=== PATIENT | male | born 1990 | race Caucasian/White ===

== ENCOUNTER 2017-12-14 20:45 | Emergency (ER) | payer SELFPAY ==
[2017-12-14 20:47] VITALS: BP 158/99; PULSE 130; RESP 20; TEMP 37.8; O2SAT 99; BMI 27.7
--- NOTE | 2017-12-14 21:05 | ED.VISSUMM ---
- ER Visit Summary Date of Service: 12/14/17 Chief Complaint: Sore throat History of Present Illness: The patient is a 27 M no significant past medical history. Patient woke up today with sore throat. His girlfriend had amoxicillin which he took. Later today felt worse. Says he has not been eating or drinking much due to a sore throat. And he felt dizzy. He also has felt feverish. He denies vomiting or diarrhea. No melena. Physical Examination: Vital signs are stable he does have a low-grade fever 100 and a heart rate of 130. Pulse ox 99% on room air no signs of hypoxia. H EENT exam TMs are normal. Mildly dry mucous membranes. Posterior pharynx has slightly enlarged tonsils airways patent. Tonsils are erythematous with exudate. Consistent with strep throat. There is no peritonsillar abscess. There is no stridor or drooling. He is able to swallow. He has no trouble breathing. Neck has mild anterior chain lymphadenopathy and tenderness. Trachea midline nontender lungs clear to auscultation bilaterally. Heart tachycardic no murmur. Abdomen soft nontender. No axillary lymphadenopathy no splenomegaly or abdominal tenderness. He is moving all 4 extremities. Neurovascular intact. Nontender. Normal range of motion. Normal motor strength both upper and lower extremities. Back exam nontender. Skin no rash. Neurologic exam normal. Test Results: None Emergency Department Course and Treatment: Clinically he is mildly dehydrated has strep throat. He will orally hydrate. Treatment Plan: Amoxicillin 3 times daily for 10 days. Fluids and rest. Warm salt water gargling. Disposition: Discharge Impression: Acute strep tonsillitis Mild dehydration This note was generated with [employer] dictation software. It may contain incorrect words, spelling, and punctuation that were not noted in review of the chart prior to signing ED Disposition - Plan for ED Patient: Chief Complaint: General Illness Referrals: NOT,DEFINED [Primary Care Provider] -
[2017-12-14] MEDS: AMOXICILLIN 500 MG CAPSULE PO (21:08)
[2017-12-14] MEDS: Acetaminophen 500 MG Tablet 1000 MG PO (21:08)
--- NOTE | 2017-12-14 21:08 | ED.DEP ---
ED Disposition - Plan for ED Patient: Disposition: Home or Assisted Living Chief Complaint: General Illness Instructions: Strep Throat Prescriptions: Amoxicillin 500 mg PO TID #30 tab Referrals: Michael Velazco MD [STAFF PHYSICIAN] - 3-5 Days if not improving Additional Instructions: You are mildly dehydrated. You must drink plenty of fluids and rest. Water, Gatorade or 7-Up. Warm salt water gargling to soothe her throat pain. Tylenol and Motrin for fever and body aches. Amoxicillin 1 pill 3 times a day for 10 days for your strep throat. Follow-up if not getting better return to ER if you are feeling worse.
[2017-12-14 21:14] VITALS: PULSE 117; RESP 16; O2SAT 99
--- NOTE | 2017-12-14 21:14 | ED.RN ---
REVIEWED D/C INSTRUCTIONS, FOLLOW UP CARE, PRESCRIPTION, AND S/S THAT WOULD WARRANT A RETURN TO THE ED WITH PT. PT VERBALIZED AN UNDERSTANDING AND DENIES FURTHER QUESTIONS FOR THIS RN. PT SKIN P/W/D, RESP EVEN AND UNLABORED, PT A&O X 3, NO DISTRESS NOTED.
== END 2017-12-14 21:17 | disposition home or self-care (01) ==
LOC: ED 21:16
PROVIDERS: Emergency Provider Emergency Medicine
DX: J03.00 Acute streptococcal tonsillitis, unspecified (principal); E86.0 Dehydration; Z72.0 Tobacco use
CPT/HCPCS: 99284

== ENCOUNTER 2017-12-26 16:09 | Emergency (ER) | payer SELFPAY ==
[2017-12-26 16:10] VITALS: BP 146/91; PULSE 97; RESP 16; TEMP 36.9; O2SAT 98; BMI 25.0
--- NOTE | 2017-12-26 16:38 | ED.RN ---
PT LEFT WITHOUT BEING SEEN AT 1634
== END 2017-12-26 16:55 | disposition left against medical advice (07) ==
LOC: ED 16:41
PROVIDERS: Emergency Provider Emergency Medicine
DX: R69 Illness, unspecified (principal)

== ENCOUNTER 2018-05-05 17:04 | Emergency (ER) | payer MEDICAID, SELFPAY ==
[2018-05-05 17:05] VITALS: BP 144/84; PULSE 104; RESP 18; TEMP 36.6; O2SAT 98; BMI 26.4
[2018-05-05 17:50] LABS: Bacteria 0 SEEN /hpf (None Seen); Mucous, Urine 0 SEEN /hpf (<or=2+)
[2018-05-05 17:51] LABS: Color, Urine Yellow (Yellow); Glucose, Dipstick Normal (Normal); Ketone-Dipstick Negative (Negative); Leukocyte Esterase-Dipstick 100 /ul (Negative); Nitrite-Dipstick Negative (Negative); Occult Blood-Urine 10 /ul (Negative); Protein-Dipstick 30 mg/dl (Negative); Urine Bilirubin Dipstick Negative (Negative); Urine Clarity Clear (Clear); Urine Urobilinogen Normal (Normal)
[2018-05-05 17:58] LABS: Red Blood Cells-Urine 0-5 SEEN /hpf (0-5); White Blood Cells 5-10 SEEN /hpf (0-5)
[2018-05-05 17:59] LABS: Squamous Epithelial Cells - UA 0-5 SEEN /hpf (0-5)
[2018-05-05 20:01] LABS: Chlamydia Trachomatis by PCR Negative (Negative); Neisserai gonorrhoeae by PCR Negative (Negative)
[2018-05-05 20:02] LABS: Probe Check PASS; Sample Adequacy Control PASS; Specimen Processing Control PASS
--- NOTE | 2018-05-06 01:51 | ED.VISSUMM ---
- ER Visit Summary Date of Service: 05/06/18 Chief Complaint: Hematuria History of Present Illness: The patient is a 28 M with no primary care physician. He reports he has hematuria that began yesterday. He denies any flank pain. Is never had anything like this before. He reports that today he began having dysuria and frequency. He is sexually active with a single partner for approximately 4 months. He has unprotected intercourse. He denies any penile discharge. No known exposure to an STD. He denies testicular pain. Physical Examination: Vitals: Stable. Afebrile. General: Well-nourished and well-developed. Head: Normocephalic atraumatic. Neck: Supple, no lymphadenopathy. No JVD. Nontender. Cardiovascular: Regular rate and rhythm. No murmurs. Respiratory: No respiratory distress. Clear to auscultation bilaterally. Abdominal: Soft, nontender, nondistended, normal bowel sounds. No guarding, rebound, or peritoneal signs. Back: Nontender. Extremities: Nontender, no edema. Skin: Normal color, no rash. Neurologic: Alert and oriented ?3. Cranial nerves II through XII are intact. Normal strength and sensation. Psych: Normal affect. Test Results: Urinalysis shows leukocytes, blood, and 5-10 white blood cells. There is no bacteria. Gonorrhea and Chlamydia are negative. Emergency Department Course and Treatment: Patient was treated in a dose of Azo p.o. He left prior to the results of even his urinalysis I did attempt to look up his phone number to contact him. There is no phone on record. Treatment Plan: Left prior to completion of treatment. Disposition: Left prior to completion of treatment. Impression: 1. Dysuria. 2. Left prior to completion of treatment. This note was generated with [employer] software. It may contain incorrect words, spelling, and punctuation that were not noted in review of the chart prior to signing ED Disposition - Plan for ED Patient: Disposition: Home or Assisted Living Chief Complaint: Complaint Referrals: Care Physician,No Primary [Primary Care Provider] -
== END 2018-05-05 18:00 | disposition home or self-care (01) ==
PROVIDERS: Emergency Provider Emergency Medicine
DX: R30.0 Dysuria (principal); R31.9 Hematuria, unspecified; R35.0 Frequency of micturition; Z53.21 Procedure and treatment not carried out due to patient leaving prior to being seen by health care provider; F17.200 Nicotine dependence, unspecified, uncomplicated
CPT/HCPCS: 81001; 87491; 87591; 99281

== ENCOUNTER 2020-05-29 20:57 | Inpatient (IN) | payer MEDICAID, SELFPAY ==
[2020-05-29 20:57] VITALS: BP 142/88; PULSE 121; RESP 16; TEMP 35.6; O2SAT 99; BMI 27.3
--- NOTE | 2020-05-29 22:40 | ED.DCSUM_ITS ---
History of Present Illness Chief Complaint: Substance Abuse Informant: Patient Narrative: Patient wanting detox from fentanyl and heroin, he mostly injects but also snorts when he has to. He has been using constantly for 15 years. Usually tries to undergo detox by himself but is unable, due to severity of withdrawal symptoms. He has not been through inpatient detox here before. Denies any suicidal thoughts. Last use was about 12 hours ago, currently is feeling like he is in withdrawal, with myalgias, backache, abdominal cramping, nausea, sweats, shaky. Past Medical History - Allergies and Home Meds Allergies/Adverse Reactions: Allergies cashew nut Allergy (Verified 05/29/20 21:00) Angioedema Primary Care Physician: Care Physician,No Primary [Primary Care Provider] - Past Medical History: None Smoking Status: Current every day smoker Drugs: Heroin Review of Systems General: Reports: Malaise, Sweats. Denies: Chills, Fever Eyes: Denies: Visual changes - bilaterally, Diplopia ENT: Denies: Rhinorrhea, Sore throat Cardiovascular: Denies: Chest pain, Palpitations Respiratory: Denies: Dyspnea, Cough, Dyspnea on exertion Gastrointestinal: Reports: Abdominal pain, Nausea. Denies: Vomiting, Diarrhea, Melena, Hematochezia Genitourinary: Denies: Dysuria, Hematuria, Frequency Musculoskeletal: Reports: Myalgias, Back pain. Denies: Extremity Pain Skin: Denies: Rash, Wounds Neurological: Denies: Headache, Weakness, Numbness Physical Exam Vital Signs/Narrative: Vital Signs Temp Pulse Resp BP Pulse Ox 05/29/20 20:57 96.1 F L 121 H 16 142/88 H 99 Inital Vital Signs reviewed: Yes General: Well nourished, Well developed, No Acute Distress Head: Normocephalic, Atraumatic Eyes: Perrl, EOMI ENT: Moist mucous membranes, No rhinorrhea Neck: Supple, Nontender Cardiovascular: Regular rate, Regular rhythm, No murmurs, Tachycardia Respiratory: No distress, CTA bilaterally, Chest nontender Abdomen: Soft, Nontender, Nondistended, Normal bowel sounds Back: Nontender, Normal Inspection Extremities: Nontender, No edema. Negative for: Calf Tenderness Skin: Normal color, No rash, - - No abscesses or signs of infected injection sites Neurological: Alert, Oriented x3, Cranial nerves II-XII grossly intact, Normal Strength, Normal Sensation Psychological: Normal affect, Normal Mood Diagnostic/Tx/Re-eval Laboratory Results 05/29/20 05/29/20 05/29/20 23:24 23:26 23:26 WBC 6.7 RBC 5.09 Hgb 15.1 Hct 45.6 MCV 89.6 MCH 29.7 MCHC 33.1 RDW Std Deviation 42.5 RDW Coeff of Diana 12.9 Plt Count 230 MPV 9.4 Immature Gran % (Auto) 0.600 Neut % (Auto) 61.0 Lymph % (Auto) 28.3 [place] % (Auto) 7.3 Eos % (Auto) 2.2 Baso % (Auto) 0.6 Absolute Neuts (auto) 4.1 Absolute Lymphs (auto) 1.91 Nucleated RBC % 0 Sodium 140 Potassium 4.0 Chloride 108 H Carbon Dioxide 28.0 Anion Gap 4 L BUN 20 H Creatinine 1.35 H Estim Creat Clear Calc 74.12 Est GFR (MDRD) Af Amer 79 Est GFR (MDRD) Non-Af 65 BUN/Creatinine Ratio 14.8 Glucose 107 H Calcium 9.0 Total Bilirubin 0.20 AST 35 ALT 65 H Alkaline Phosphatase 102 Total Protein 8.3 H Albumin 3.9 Globulin 4.4 H Albumin/Globulin Ratio 0.9 Urine Opiates Screen NEGATIVE Urine Methadone Screen NEGATIVE Ur Barbiturates Screen NEGATIVE Ur Phencyclidine Scrn NEGATIVE Ur Amphetamines Screen POSITIVE H U Methamphetamin-MDMA NEGATIVE U Benzodiazepines Scrn NEGATIVE Urine Cocaine Screen NEGATIVE U Cannabinoids Screen NEGATIVE Ur Drug Screen Comment Ethyl Alcohol 05/29/20 23:26 WBC RBC Hgb Hct MCV MCH MCHC RDW Std Deviation RDW Coeff of Diana Plt Count MPV Immature Gran % (Auto) Neut % (Auto) Lymph % (Auto) [place] % (Auto) Eos % (Auto) Baso % (Auto) Absolute Neuts (auto) Absolute Lymphs (auto) Nucleated RBC % Sodium Potassium Chloride Carbon Dioxide Anion Gap BUN Creatinine Estim Creat Clear Calc Est GFR (MDRD) Af Amer Est GFR (MDRD) Non-Af BUN/Creatinine Ratio Glucose Calcium Total Bilirubin AST ALT Alkaline Phosphatase Total Protein Albumin Globulin Albumin/Globulin Ratio Urine Opiates Screen Urine Methadone Screen Ur Barbiturates Screen Ur Phencyclidine Scrn Ur Amphetamines Screen U Methamphetamin-MDMA U Benzodiazepines Scrn Urine Cocaine Screen U Cannabinoids Screen Ur Drug Screen Comment Ethyl Alcohol 4.0 - Medical Decision Making Patient is cleared medically for detox. Stable. Was treated for his withdrawal symptoms. ED Disposition - Plan for ED Patient: Disposition: Acute Care [facility] [place] Diagnosis: Opioid dependence Referrals: Care Physician,No Primary [Primary Care Provider] -
[2020-05-29 23:18] VITALS: RESP 16
[2020-05-29] MEDS: Ondansetron ODT 4 MG Tablet 8 MG PO (23:26)
[2020-05-29] MEDS: LORazepam 1 MG Tablet 2 MG PO (23:26)
[2020-05-29] MEDS: cloNIDine HCl 0.1 MG Tablet 0.2 MG PO (23:27)
[2020-05-29 23:42] LABS: Absolute Lymphocyte Count 1.91 X10^3/uL (0.83-4.51); Absolute Neutrophil Count 4.1 X10^3/uL (2.0-7.7); Basophil# 0.04 X10^3/uL; Basophil% 0.6 % (0-1); Eosinophil# 0.15 X10^3/uL; Eosinophils% 2.2 % (0-5); Hematocrit 45.6 % (40-54); Hemoglobin 15.1 g/dL (13.0-16.5); Lymphocyte # 1.91 X10^3/ul (4.0); Lymphocyte % 28.3 % (19-41); Mean Corp Hgb Conc 33.1 g/dL (32-36); Mean Corpuscular Hgb 29.7 pg (27.0-32.0); Mean Corpuscular Volume 89.6 fL (80-94); Mean Platelet Vol. 9.4 fl (6.2-12.0); Monocyte# 0.49 X10^3/uL; Monocyte% 7.3 % (0-10); NRBC Flagged by Analyzer 0 % (0-5); Neutrophil # 4.11 X10^3/uL (2.7-7.7); Platelet Count 230 K/mm3 (150-450); RBC Distribution Width CV 12.9 % (11.6-14.6); RBC Distribution Width SD 42.5 fl (35.1-43.9); Red Blood Count 5.09 M/mm3 (4.6-6.2); White Blood Count 6.7 K/mm3 (4.4-11.0)
[2020-05-30] VITALS (8 sets, daily range): BP systolic 124–159; BP diastolic 72–103; PULSE 88–110; RESP 16–20; TEMP 36.6–37.6; O2SAT 96–99; BMI 24.3
[2020-05-30 00:03] LABS: ALB/GLOB Ratio 0.9 RATIO (0.9-2.4); AST(SGOT) 35 U/L (15-37); Alanine Aminotransfer ALT/SGPT 65 U/L (16-61); Albumin, Serum 3.9 g/dL (3.2-5.0); Alkaline Phosphatase 102 U/L (45-117); Anion Gap 4 (5-15); BUN 20 mg/dL (7-18); BUN/Creat Ratio 14.8 RATIO (10-20); Chloride 108 mmol/L (98-107); Creatinine, Serum 1.35 mg/dL (0.70-1.30); EST Glomerular Filtration Rate 65 mL/min (>60); Est Glom Filt Rate - Afr Amer 79 mL/min (>60); Estimated Creatinine Clearance 74.12 ml/min; Globulin 4.4 g/dL (2.2-4.2); Glucose 107 mg/dL (74-106); Protein, Total 8.3 g/dL (6.4-8.2); Sodium Level 140 mmol/L (136-145)
[2020-05-30 00:07] LABS: Amphetamine Urine VISTA POSITIVE (<1000 ng/mL); Barbiturate Urine VISTA NEGATIVE (< 200 ng/mL); Benzodiazepine Urine VISTA NEGATIVE (< 200 ng/mL); Cocaine Urine VISTA NEGATIVE (< 300 ng/mL); Ecstacy Urine VISTA NEGATIVE (< 500 ng/mL); Methadone Urine VISTA NEGATIVE (< 300 ng/mL); PCP Urine VISTA NEGATIVE (< 25 ng/mL); THC Urine VISTA NEGATIVE (< 50 ng/mL); Vista UDS pH Range 6
--- NOTE | 2020-05-30 01:31 | HP.PCM_ITS ---
Problem List (1) Opioid dependence Status: Chronic (2) Acute opioid withdrawal Status: Acute History of Present Illness Date of Admission: 05/30/20 Chief Complaint: Acute opioid withdrawal requesting detox. The patient is a 30 year old M with past medical history as mentioned above presented to the emergency room requesting admission for acute opioid withdrawal for medical stabilization. Patient stated that he has been using IV heroin and fentanyl daily for at least 10 years. He never went into detoxification program. His last use was yesterday morning. His only complaint is some back pain and body aches associated with mild restlessness. He denied abdominal cramps, nausea or vomiting, denied diarrhea. He denied significant shakiness or anxiety. He denied nausea or vomiting. In the emergency department, initially was tachycardic but improved, other vital signs were stable. Routine blood work was remarkable for BUN of 20 and creatinine of 1.35. LFT was unremarkable. Urine drug screen was positive for amphetamines. Alcohol level was 4. He is being admitted for acute opioid withdrawal for medical stabilization. Past Medical History Past Medical History (Chronic Problems): Chronic Problems Opioid dependence (Chronic) Allergies cashew nut Allergy (Verified 05/29/20 21:00) Angioedema Home Medications: Ambulatory Orders Medication Instructions Recorded NK 05/29/20 Surgical History: no surgical history Psychiatric History: No pertinent psych hx Lives: Alone Smoking Status: Current every day smoker Tobacco Use: Cigarettes Alcohol: None Drugs: Heroin, - - IV fentanyl and heroin. - *Family History Maternal History Items: No pertinent history Paternal History Items: No pertinent history Review of Systems Constitutional: Denies: Anorexia, Chills, Fever, Weakness Eyes: Denies: Blurred vision, Double vision, Drainage, Redness HEENT: Denies: Difficulty Hearing, Ear Pain, Eye Pain, Nasal Congestion, Sore Throat Cardiovascular: Denies: Chest Pain, Chest Pressure, Edema, Heaviness, Light Headedness, Palpitations, Syncope Respiratory: Denies: Cough, Hemoptysis, Pleuritic Pain, Shortness of Breath, Sputum production, Wheezing Gastrointestinal: Denies: Abdominal Pain, Constipation, Diarrhea, Nausea, Vomiting Genitourinary: Denies: Dysuria, Frequency, Hematuria Musculoskeletal: Reports: Back Pain. Denies: Arm Pain, Foot Pain Skin: Denies: Dryness, Rash Neurological: Denies: Balance problems, Blurred vision, Double vision, Slurred speech, Confusion, Headaches, Numbness Psychiatric: Denies: Anxiety, Depression Endocrine: Denies: Change in Body Habitus, Polydipsia, Polyuria VTE Information - Inpt Only VTE Present on Admission: No VTE Mechan Device Prophylaxis: None VTE Pharm Prophylaxis ordered?: No - Physical Exam Vitals/I&O's: Vital Signs Temp Pulse Resp BP Pulse Ox 98.4 F 88 16 149/94 H 99 05/30/20 01:22 05/30/20 01:22 05/30/20 01:22 05/30/20 01:22 05/30/20 01:22 Oxygen Delivery Method Room Air Weight: 175 lb Body Mass Index (BMI) 27.3 General: Alert, Oriented x3, Cooperative, No apparent distress HEENT: Atraumatic, PERRLA, EOMI, Normocephalic Oral: Moist Mucosa, No Gingival or Mucosal Lesions/ Ulcerations Neck: Supple, No JVD, Negative Carotid Bruits, Trachea Midline, Thyroid Normal Size and Texture Lungs: Clear to auscultation, Normal air movement, No rhonchi, No wheeze, No rales Cardiovascular: Regular rate, Regular Rhythm, Normal S1, Normal S2, PMI Normal Abdomen: Bowel Sounds Present, Soft, Non Tender, Non-Distended, No Hepato- splenomegaly Extremities: No clubbing, No cyanosis, No edema Skin: No rashes, No breakdown Lymphatic: No Cervical, Supraclavicular, or Inguinal Adenopathy Neurological: Cranial nerves II-XII grossly intact, Motor Exam 5/5 strength throughout Psych/Mental Status: Normal Affect, Appropriate, Alert and oriented to time, place, person, mood and affect Laboratory Results 05/29/20 23:24: Urine Opiates Screen NEGATIVE, Urine Methadone Screen NEGATIVE, Ur Barbiturates Screen NEGATIVE, Ur Phencyclidine Scrn NEGATIVE, Ur Amphetamines Screen POSITIVE H, U Methamphetamin-MDMA NEGATIVE, U Benzodiazepines Scrn NEGATIVE, Urine Cocaine Screen NEGATIVE, U Cannabinoids Screen NEGATIVE, Ur Drug Screen Comment 05/29/20 23:26: WBC 6.7, RBC 5.09, Hgb 15.1, Hct 45.6, MCV 89.6, MCH 29.7, MCHC 33.1, RDW Std Deviation 42.5, RDW Coeff of Diana 12.9, Plt Count 230, MPV 9.4, Immature Gran % (Auto) 0.600, Neut % (Auto) 61.0, Lymph % (Auto) 28.3, [place] % ( Auto) 7.3, Eos % (Auto) 2.2, Baso % (Auto) 0.6, Absolute Neuts (auto) 4.1, Absolute Lymphs (auto) 1.91, Nucleated RBC % 0 05/29/20 23:26: Sodium 140, Potassium 4.0, Chloride 108 H, Carbon Dioxide 28.0, Anion Gap 4 L, BUN 20 H, Creatinine 1.35 H, Estim Creat Clear Calc 74.12, Est GFR (MDRD) Af Amer 79, Est GFR (MDRD) Non-Af 65, BUN/Creatinine Ratio 14.8, Glucose 107 H, Calcium 9.0, Total Bilirubin 0.20, AST 35, ALT 65 H, Alkaline Phosphatase 102, Total Protein 8.3 H, Albumin 3.9, Globulin 4.4 H, Albumin/Globulin Ratio 0.9 05/29/20 23:26: Ethyl Alcohol 4.0 Assessment/Plan All Active Problems Acute opioid withdrawal (Acute) This is a 30 years old male patient presented to the emergency room requesting admission for acute opioid withdrawal for medical stabilization. #1 acute opiate withdrawal: Patient has been using IV heroin and fentanyl every day for the last at least 10 years, never went into detoxification program. This is his first time for detox. Routine blood work, LFT and urine drug screen reviewed as above. Plan: Admit to MedSurg floor, initiate opioid withdrawal protocol with tapering Subutex, as needed Catapres, Bentyl, gabapentin, Vistaril, Imodium, methocarbamol, Zofran and trazodone, consult 180 program. #2 dehydration: As indicated by BUN of 20 and creatinine 1.35. Plan for IV fluids, encourage oral intake, repeat BMP tomorrow morning. #3 tobacco abuse: NicoDerm patch. #4 DVT prophylaxis: Low risk patient, no prophylaxis indicated. This note was generated with [employer] software. It may contain incorrect words, spelling, and punctuation that were not noted in checking the note before signing. Inpatient E&M: 48796 Init Hosp L2
[2020-05-30] MEDS: Buprenorphine HCl 2 MG TAB.SUBL SL ×3 (02:53→18:17)
[2020-05-30] MEDS: 0.9% Normal Saline 1,000 ML 100 ML IV (04:26)
[2020-05-30] MEDS: Dicyclomine 10 MG Capsule 20 MG PO ×2 (09:55→16:11)
[2020-05-30] MEDS: cloNIDine HCl 0.1 MG Tablet PO ×2 (09:55→19:54)
[2020-05-30] MEDS: Methocarbamol 750 MG Tablet 1500 MG PO ×2 (09:55→16:11)
[2020-05-30] MEDS: hydrOXYzine PAM 25 MG Capsule 50 MG PO ×2 (13:17→19:54)
[2020-05-30] MEDS: Loperamide 2 MG Capsule PO (13:18)
--- NOTE | 2020-05-30 13:20 | CASEMGMT ---
DOMINICK called the pt navigator number at [facility], spoke w/Ibeth. SW notified her of pt being here, she will come see him here tomorrow. energy sales consultant made aware. [place] Sneed
[2020-05-30] MEDS: Gabapentin 300 MG Capsule PO (14:26)
[2020-05-31 02:20] VITALS: BP 143/79; PULSE 71; RESP 18; TEMP 36.8; O2SAT 99
[2020-05-31] MEDS: Buprenorphine HCl 2 MG TAB.SUBL SL ×3 (02:22→17:38)
[2020-05-31] MEDS: Methocarbamol 750 MG Tablet 1500 MG PO ×3 (02:25→23:01)
[2020-05-31] MEDS: hydrOXYzine PAM 25 MG Capsule 50 MG PO ×3 (02:26→23:01)
[2020-05-31] MEDS: cloNIDine HCl 0.1 MG Tablet PO ×3 (05:12→23:01)
[2020-05-31 06:29] LABS: Anion Gap 5 (5-15); BUN 19 mg/dL (7-18); BUN/Creat Ratio 13.2 RATIO (10-20); Calcium,Total 9.6 mg/dL (8.5-10.1); Chloride 111 mmol/L (98-107); Creatinine, Serum 1.44 mg/dL (0.70-1.30); EST Glomerular Filtration Rate 61 mL/min (>60); Est Glom Filt Rate - Afr Amer 74 mL/min (>60); Estimated Creatinine Clearance 69.49 ml/min; Glucose 88 mg/dL (74-106); Potassium 3.9 mmol/L (3.5-5.1); Sodium Level 141 mmol/L (136-145)
[2020-05-31] MEDS: Gabapentin 300 MG Capsule PO ×2 (07:37→23:02)
[2020-05-31 07:42] VITALS: BP 130/80; PULSE 83; RESP 18; TEMP 36.6; O2SAT 98
[2020-05-31] MEDS: chlordiazePOXIDE 25 MG Capsule PO ×4 (08:19→21:41)
--- NOTE | 2020-05-31 10:03 | PN_ITS ---
Patient Problems: Active and Suspected Problems Acute opioid withdrawal (Acute) Subjective: Agitated this morning, he is says that he feels he is crawling out of his skin. He uses about 1.5 g a day of heroin usually about half a gram per use. States that he does use benzos on occasion Vitals/I&O's: Vital Signs Temp Pulse Resp BP Pulse Ox 97.9 F 83 18 130/80 H 98 05/31/20 07:42 05/31/20 07:42 05/31/20 07:42 05/31/20 07:42 05/31/20 07:42 Oxygen Delivery Method Room Air Weight: 155 lb 3.287 oz Body Mass Index (BMI) 24.3 Intake and Output for Last 24 Hours 05/29/20 05/30/20 05/31/20 23:59 23:59 23:59 Intake Total 1371.67 / 1371.67 240 / 240 Balance 1371.67 / 1371.67 240 / 240 General: Alert, Oriented x3, Cooperative, - - Restless HEENT: Atraumatic, PERRLA, EOMI, Normocephalic Oral: Moist Mucosa Neck: Supple, No JVD Lungs: Clear to auscultation, Normal air movement, No rhonchi, No wheeze, No rales Cardiovascular: Regular rate, Regular Rhythm, Normal S1, Normal S2, No murmurs Abdomen: Soft, Non Tender, Non-Distended, No Hepato-splenomegaly Extremities: No edema, Capillary Refill Less than 3 Seconds Skin: No rashes, No breakdown Neurological: Neuro grossly intact, Sensory exam intact to light touch and pain Psych/Mental Status: Agitated, Anxious, Restless Laboratory Results 05/31/20 04:55: Sodium 141, Potassium 3.9, Chloride 111 H, Carbon Dioxide 25.0, Anion Gap 5, BUN 19 H, Creatinine 1.44 H, Estim Creat Clear Calc 69.49, Est GFR (MDRD) Af Amer 74, Est GFR (MDRD) Non-Af 61, BUN/Creatinine Ratio 13.2, Glucose 88, Calcium 9.6 Current Medications Acetaminophen (Acetaminophen 500 Mg Tablet) 500 mg PO Q4H PRN PRN PRN Reason: Temp > 100.4 F Buprenorphine HCl (Buprenorphine Hcl 2 Mg Tab.Subl) 2 mg SL Q8H OSWALDO; Taper Stop: 06/02/20 02:44 Last Admin: 05/31/20 02:22 Dose: 2 mg Documented by: Chlordiazepoxide (Chlordiazepoxide 25 Mg Capsule) 25 mg PO 4X/DAY [facility] Last Admin: 05/31/20 08:19 Dose: 25 mg Documented by: Clonidine (Clonidine Hcl 0.1 Mg Tablet) 0.1 mg PO Q8H PRN PRN PRN Reason: RESTLESSNESS Last Admin: 05/31/20 05:12 Dose: 0.1 mg Documented by: Dicyclomine HCl (Dicyclomine 10 Mg Capsule) 20 mg PO Q6H PRN PRN PRN Reason: Abdominal Discomfort Last Admin: 05/30/20 16:11 Dose: 20 mg Documented by: Gabapentin (Gabapentin 300 Mg Capsule) 300 mg PO Q8H PRN PRN PRN Reason: moderate to severe anxiety Last Admin: 05/31/20 07:37 Dose: 300 mg Documented by: Hydroxyzine Pamoate (Hydroxyzine Padmaja 25 Mg Capsule) 50 mg PO Q6H PRN PRN PRN Reason: mild anxiety Last Admin: 05/31/20 02:26 Dose: 50 mg Documented by: Loperamide HCl (Loperamide 2 Mg Capsule) 2 mg PO Q4H PRN PRN PRN Reason: LOOSE STOOLS Last Admin: 05/30/20 13:18 Dose: 2 mg Documented by: Methocarbamol (Methocarbamol 750 Mg Tablet) 1,500 mg PO Q6H PRN PRN PRN Reason: MUSCLE SPASM Last Admin: 05/31/20 02:25 Dose: 1,500 mg Documented by: Nicotine (Nicotine 21 Mg Patch) 21 mg TRANSDERM. DAILY [facility] Last Admin: 05/31/20 07:36 Dose: 21 mg Documented by: Nutritional Formula (Lactose Free) (Ensure Enlive 120 Ml Liquid) 120 ml PO 4X/DAY [facility] Last Admin: 05/30/20 19:55 Dose: Not Given Documented by: Ondansetron HCl (Ondansetron 8 Mg Tablet) 8 mg PO Q8H PRN PRN PRN Reason: NAUSEA Trazodone HCl (Trazodone 100 Mg Tablet) 100 mg PO QHS PRN PRN PRN Reason: INSOMNIA STROKE Vital Signs/Narrative: Vital Signs Temp Pulse Resp BP Pulse Ox 05/31/20 07:42 97.9 F 83 18 130/80 H 98 Medical Necessity - Tobacco Use Smoking Status: Current every day smoker Tobacco Use: Cigarettes Assessment/Plan All Active Problems Acute opioid withdrawal (Acute) 1. Acute opiate withdrawal/tobacco abuse -Uses about 1.5 g of heroin every day at half a gram per use -We will continue with the opiate withdrawal protocol with Subutex, but will add Librium -Discussed cessation, will provide him with nicotine patch 2. Elevated creatinine -Unsure as to what his baseline creatinine is, his creatinine on admission was 1.35 and he was given some fluid and now his creatinine is 1.44 he does have an elevated total protein this could all be attributed to dehydration however I have also seen elevated creatinines in people who have a high protein diet -We will provide him with some more IV fluids and encourage good p.o. intake. DVT: Ambulation Inpatient E&M: 08612 Subs Hosp L2
[2020-05-31] MEDS: 0.9% Normal Saline 1,000 ML 125 ML IV ×3 (10:40→23:56)
[2020-05-31 15:00] VITALS: BP 121/82; PULSE 92; RESP 18; TEMP 37.3; O2SAT 98
[2020-05-31 22:08] VITALS: BP 139/76; PULSE 78; RESP 18; TEMP 36.8; O2SAT 100
--- NOTE | 2020-05-31 23:03 | NURSING ---
pt stated trazodone does not work makes pt restless
[2020-06-01 02:51] VITALS: BP 110/63; PULSE 78; RESP 16; TEMP 36.5; O2SAT 98
[2020-06-01] MEDS: Buprenorphine HCl 2 MG TAB.SUBL SL (02:55)
[2020-06-01 05:51] VITALS: BP 112/69; PULSE 58
[2020-06-01] MEDS: Methocarbamol 750 MG Tablet 1500 MG PO (05:52)
[2020-06-01] MEDS: hydrOXYzine PAM 25 MG Capsule 50 MG PO (05:52)
[2020-06-01 06:37] LABS: Anion Gap 6 (5-15); BUN 19 mg/dL (7-18); BUN/Creat Ratio 13.9 RATIO (10-20); Calcium,Total 9.1 mg/dL (8.5-10.1); Chloride 114 mmol/L (98-107); Creatinine, Serum 1.37 mg/dL (0.70-1.30); EST Glomerular Filtration Rate 64 mL/min (>60); Est Glom Filt Rate - Afr Amer 78 mL/min (>60); Estimated Creatinine Clearance 73.04 ml/min; Glucose 91 mg/dL (74-106); Potassium 3.4 mmol/L (3.5-5.1); Sodium Level 145 mmol/L (136-145)
[2020-06-01] MEDS: 0.9% Normal Saline 1,000 ML 125 ML IV (07:17)
[2020-06-01 08:39] VITALS: BP 112/60; PULSE 68; RESP 16; TEMP 36.8; O2SAT 100
[2020-06-01] MEDS: Dicyclomine 10 MG Capsule 20 MG PO (09:09)
[2020-06-01] MEDS: chlordiazePOXIDE 25 MG Capsule PO (09:10)
[2020-06-01] MEDS: Gabapentin 300 MG Capsule PO (09:10)
--- NOTE | 2020-06-01 10:39 | PN_ITS ---
Patient Problems: Active and Suspected Problems Acute opioid withdrawal (Acute) Subjective: Bit better now with the initiation of Librium however he is still restless Vitals/I&O's: Vital Signs Temp Pulse Resp BP Pulse Ox 98.2 F 68 16 112/60 100 06/01/20 08:39 06/01/20 08:39 06/01/20 08:39 06/01/20 08:39 06/01/20 08:39 Oxygen Delivery Method Room Air Weight: 155 lb 3.287 oz Body Mass Index (BMI) 24.3 Intake and Output for Last 24 Hours 05/30/20 05/31/20 06/01/20 23:59 23:59 23:59 Intake Total 1371.67 / 1371.67 3698.33 / 3698.33 1218.75 / 1218.75 Balance 1371.67 / 1371.67 3698.33 / 3698.33 1218.75 / 1218.75 General: Alert, Oriented x3, Cooperative, - - Restless HEENT: Atraumatic, PERRLA, EOMI, Normocephalic Oral: Moist Mucosa Neck: Supple, No JVD Lungs: Clear to auscultation, Normal air movement, No rhonchi, No wheeze, No rales Cardiovascular: Regular rate, Regular Rhythm, Normal S1, Normal S2, No murmurs Abdomen: Soft, Non Tender, Non-Distended, No Hepato-splenomegaly Extremities: No edema, Capillary Refill Less than 3 Seconds Skin: No rashes, No breakdown Neurological: Neuro grossly intact, Sensory exam intact to light touch and pain Psych/Mental Status: Anxious, Restless Laboratory Results 06/01/20 05:44: Sodium 145, Potassium 3.4 L, Chloride 114 H, Carbon Dioxide 25.0, Anion Gap 6, BUN 19 H, Creatinine 1.37 H, Estim Creat Clear Calc 73.04, Est GFR (MDRD) Af Amer 78, Est GFR (MDRD) Non-Af 64, BUN/Creatinine Ratio 13.9, Glucose 91, Calcium 9.1 Current Medications Acetaminophen (Acetaminophen 500 Mg Tablet) 500 mg PO Q4H PRN PRN PRN Reason: Temp > 100.4 F Buprenorphine HCl (Buprenorphine Hcl 2 Mg Tab.Subl) 2 mg SL Q12H OSWALDO; Taper Stop: 06/02/20 02:44 Last Admin: 06/01/20 02:55 Dose: 2 mg Documented by: Chlordiazepoxide (Chlordiazepoxide 25 Mg Capsule) 25 mg PO 4X/DAY [facility] Last Admin: 06/01/20 09:10 Dose: 25 mg Documented by: Clonidine (Clonidine Hcl 0.1 Mg Tablet) 0.1 mg PO Q8H PRN PRN PRN Reason: RESTLESSNESS Last Admin: 05/31/20 23:01 Dose: 0.1 mg Documented by: Dicyclomine HCl (Dicyclomine 10 Mg Capsule) 20 mg PO Q6H PRN PRN PRN Reason: Abdominal Discomfort Last Admin: 06/01/20 09:09 Dose: 20 mg Documented by: Gabapentin (Gabapentin 300 Mg Capsule) 300 mg PO Q8H PRN PRN PRN Reason: moderate to severe anxiety Last Admin: 06/01/20 09:10 Dose: 300 mg Documented by: Hydroxyzine Pamoate (Hydroxyzine Padmaja 25 Mg Capsule) 50 mg PO Q6H PRN PRN PRN Reason: mild anxiety Last Admin: 06/01/20 05:52 Dose: 50 mg Documented by: Sodium Chloride () 1,000 mls @ 125 mls/hr IV .Q8H OSWALDO Last Admin: 06/01/20 07:17 Dose: 125 mls/hr Documented by: Loperamide HCl (Loperamide 2 Mg Capsule) 2 mg PO Q4H PRN PRN PRN Reason: LOOSE STOOLS Last Admin: 05/30/20 13:18 Dose: 2 mg Documented by: Methocarbamol (Methocarbamol 750 Mg Tablet) 1,500 mg PO Q6H PRN PRN PRN Reason: MUSCLE SPASM Last Admin: 06/01/20 05:52 Dose: 1,500 mg Documented by: Nicotine (Nicotine 21 Mg Patch) 21 mg TRANSDERM. DAILY [facility] Last Admin: 06/01/20 09:14 Dose: 21 mg Documented by: Nutritional Formula (Lactose Free) (Ensure Enlive 120 Ml Liquid) 120 ml PO 4X/DAY [facility] Last Admin: 06/01/20 09:09 Dose: 120 ml Documented by: Ondansetron HCl (Ondansetron 8 Mg Tablet) 8 mg PO Q8H PRN PRN PRN Reason: NAUSEA Trazodone HCl (Trazodone 100 Mg Tablet) 100 mg PO QHS PRN PRN PRN Reason: INSOMNIA STROKE Vital Signs/Narrative: Vital Signs Temp Pulse Resp BP Pulse Ox 06/01/20 08:39 98.2 F 68 16 112/60 100 Medical Necessity - Tobacco Use Smoking Status: Current every day smoker Tobacco Use: Cigarettes Assessment/Plan All Active Problems Acute opioid withdrawal (Acute) 1. Acute opiate withdrawal/tobacco abuse -Uses about 1.5 g of heroin every day at half a gram per use -We will continue with the opiate withdrawal protocol with Subutex, but will add Librium -Discussed cessation, will provide him with nicotine patch 2. Elevated creatinine -Unsure as to what his baseline creatinine is, his creatinine on admission was 1.35 climbed to 1.44, it is coming down with the addition of IV fluids -We will provide him with some more IV fluids and encourage good p.o. intake. DVT: Ambulation Inpatient E&M: 48098 Subs Hosp L2
== END 2020-06-01 12:39 | disposition left against medical advice (07) | DRG 770 ==
LOC: ED 22:42 → MS3 05-30 01:58
PROVIDERS: Admitting Provider Hospitalist; Emergency Provider Emergency Medicine; Visit Provider Family Medicine
DX: F11.23 Opioid dependence with withdrawal (principal); F17.210 Nicotine dependence, cigarettes, uncomplicated; E86.0 Dehydration; Z53.21 Procedure and treatment not carried out due to patient leaving prior to being seen by health care provider
CPT/HCPCS: 36415; 80048; 80053; 80307; 80320; 85025; 99283; 99406; J7030; G0480